=== PATIENT | male | born 1980 | race Caucasian/White ===

== ENCOUNTER 2019-10-14 13:11 | Emergency (ER) | payer MEDICAID ==
[~2019-10-14] VITALS: Ht 182.9 cm; Wt 54.4 kg
[2019-10-14 13:54] VITALS: BP 120/72
== END 2019-10-14 13:55 | disposition home or self-care (01) ==
LOC: ER 13:11
DX: Z76.0 Encounter for issue of repeat prescription (principal); F17.200 Nicotine dependence, unspecified, uncomplicated; F20.9 Schizophrenia, unspecified; Z59.0 Homelessness
CPT/HCPCS: A4663